=== PATIENT | male | born 1960 | race Caucasian/White ===

== ENCOUNTER 2018-06-23 05:05 | Emergency (ER) | payer SELFPAY ==
[~2018-06-23] VITALS: Ht 182.9 cm; Wt 79.4 kg
[2018-06-23] MEDS ORDERED: fentaNYL PF VIAL 100 MCG/2 ML VIAL IV PRN (05:15)
--- NOTE | 2018-06-23 05:25 | PHYS DOC ---
Adult General HPI HPI Patient is a 57-year-old male who presents with complaint of left-sided chest wall pain that started yesterday. Patient states that he has been doing a lot of coughing and yesterday states that he started having pain in his left ribs. He states that it feels like maybe he cracked one of his ribs. He denies any recent injuries. Patient states that he also wonders if he might have pneumonia. States that cough is been productive of sputum. He rates pain at an 8 -9 out of 10. He states the pain is worsened with coughing and with deep breathing. (SUNNY VALENCIA Jr. DO) Review of Systems Review of Systems Constitutional: Denies fever or chills [] Respiratory: Complains of cough and shortness of breath [] Cardiovascular: No additional information not addressed in HPI [] GI: Denies abdominal pain, nausea, vomiting or diarrhea [] Integument: Denies rash or skin lesions [] All other systems were reviewed and found to be within normal limits, except as documented in this note. (SUNNY VALENCIA Jr. DO) Current Medications Current Medications Current Medications Medications (Trade) Dose Ordered Sig/Irma Start Time Stop Time Status Last Admin Dose Admin Fentanyl Citrate (Fentanyl 2ml Vial) 25 mcg PRN Q15MIN PRN 06/23/18 05:15 06/24/18 05:14 06/23/18 05:45 25 MCG Info (CONTRAST GIVEN -- Rx MONITORING) 1 each PRN DAILY PRN 06/23/18 06:30 06/25/18 06:29 Iohexol (Omnipaque 350 Mg/ml) 100 ml 1X ONCE 06/23/18 07:00 06/23/18 07:01 DC Sodium Chloride 1,000 ml @ 100 mls/hr Q10H 06/23/18 06:00 06/23/18 15:59 06/23/18 05:45 100 MLS/HR (ISABELLA LUBIN DO) Allergies Allergies Allergies Coded Allergies Type Severity Reaction Last Updated Verified No Known Drug Allergies 06/23/18 No (ISABELLA LUBIN DO) Physical Exam Physical Exam Constitutional: Well developed, well nourished, no acute distress, non-toxic appearance. [] HENT: Normocephalic, atraumatic, bilateral external ears normal, oropharynx moist, no oral exudates, nose normal. [] Eyes: PERRLA, EOMI, conjunctiva normal, no discharge. [] Neck: Normal range of motion, no tenderness, supple, no stridor. [] Cardiovascular: Regular rate and rhythm [] Lungs & Thorax: There are rales in the left lung base to auscultation [] Abdomen: Bowel sounds normal, soft, no tenderness. [] Skin: Warm, dry, no erythema, no rash. [] Extremities: No tenderness, no cyanosis, no clubbing, ROM intact, no edema. [] Neurologic: Alert and oriented X 3, normal motor function, normal sensory function, no focal deficits noted. [] (SUNNY VALENCIA Jr. DO) Current Patient Data Vital Signs Vital Signs Date Time Temp Pulse Resp B/P (MAP) Pulse Ox O2 Delivery O2 Flow Rate FiO2 06/23/18 07:14 141/78 (99) 06/23/18 06:38 67 95 Room Air 06/23/18 05:05 98.1 21 98.1 (ISABELLA LUBIN DO) Lab Values Laboratory Tests Test 06/23/18 05:20 White Blood Count 8.9 x10^3/uL (4.0-11.0) Red Blood Count 4.42 x10^6/uL (4.30-5.70) Hemoglobin 13.7 g/dL (13.0-17.5) Hematocrit 40.7 % (39.0-53.0) Mean Corpuscular Volume 92 fL (79-100) Mean Corpuscular Hemoglobin 31 pg (25-35) Mean Corpuscular Hemoglobin Concent 34 g/dL (31-37) Red Cell Distribution Width 15.0 % (11.5-14.5) H Platelet Count 312 x10^3/uL (140-400) Neutrophils (%) (Auto) 60 % (31-73) Lymphocytes (%) (Auto) 28 % (24-48) Monocytes (%) (Auto) 10 % (0-9) H Eosinophils (%) (Auto) 1 % (0-3) Basophils (%) (Auto) 1 % (0-3) Neutrophils # (Auto) 5.4 x10^3uL (1.8-7.7) Lymphocytes # (Auto) 2.5 x10^3/uL (1.0-4.8) Monocytes # (Auto) 0.9 x10^3/uL (0.0-1.1) Eosinophils # (Auto) 0.1 x10^3/uL (0.0-0.7) Basophils # (Auto) 0.1 x10^3/uL (0.0-0.2) Sodium Level 134 mmol/L (136-145) L Potassium Level 3.7 mmol/L (3.5-5.1) Chloride Level 100 mmol/L (98-107) Carbon Dioxide Level 25 mmol/L (21-32) Anion Gap 9 (6-14) Blood Urea Nitrogen 14 mg/dL (8-26) Creatinine 0.8 mg/dL (0.7-1.3) Estimated GFR (Cockcroft-Gault) 99.3 BUN/Creatinine Ratio 18 (6-20) Glucose Level 109 mg/dL (70-99) H Lactic Acid Level 1.7 mmol/L (0.4-2.0) Calcium Level 8.2 mg/dL (8.5-10.1) L Magnesium Level 2.2 mg/dL (1.8-2.4) Total Bilirubin 0.2 mg/dL (0.2-1.0) Aspartate Amino Transferase (AST) 34 U/L (15-37) Alanine Aminotransferase (ALT) 45 U/L (16-63) Alkaline Phosphatase 106 U/L (46-116) Troponin I Quantitative < 0.017 ng/mL (0.000-0.055) AB-Hxr-D-Type Natriuretic Peptide 45 pg/mL (0-124) Total Protein 7.3 g/dL (6.4-8.2) Albumin 3.3 g/dL (3.4-5.0) L Albumin/Globulin Ratio 0.8 (1.0-1.7) L Laboratory Tests 06/23/18 05:20 Laboratory Tests 06/23/18 05:20 (ISABELLA LUBIN DO) EKG EKG [] Interpretation Time: EKG demonstrates normal sinus rhythm with rate of 65. (SUNNY VALENCIA Jr., DO) Radiology/Procedures Radiology/Procedures [] (SUNNY VALENCIA Jr., DO) Course & Med Decision Making Course & Med Decision Making Pertinent Labs and Imaging studies reviewed. (See chart for details) [] (VALENCIA,SUNNY D Jr. DO) Course & Med Decision Making Atypical chest pain, EKG abnormal. The patient strongly recommended for further cardiac evaluation declined by patient. He requests to leave the hospital follow -up with his primary care physician. I explained to patient that he is high risk and disability from time to metastatic diagnosis. He verbalized understanding of these risks and requested to leave the emergency department. I instructed to follow-up with his primary care doctor as soon as possible and to return to the ED should he change his mind regarding hospital admission, (ISABELLA LUBIN DO) Dragon Disclaimer Dragon Disclaimer This electronic medical record was generated, in whole or in part, using a voice recognition dictation system. (SUNNY VALENCIA Jr. DO) Departure Departure Impression: Primary Impression: Chest pain Disposition: 07 AGAINST MEDICAL ADVICE Condition: GUARDED SUNNY VALENCIA Jr., DO Jun 23, 2018 05:25 ISABELLA LUBIN DO Jun 23, 2018 08:38
[2018-06-23 05:47] LABS: BASO # 0.1 x10^3/uL (0.0-0.2); BASO % 1 % (0-3); EOS # 0.1 x10^3/uL (0.0-0.7); EOS % 1 % (0-3); HEMATOCRIT 40.7 % (39.0-53.0); HEMOGLOBIN 13.7 g/dL (13.0-17.5); LYMPH # 2.5 x10^3/uL (1.0-4.8); LYMPH % 28 % (24-48); MEAN CORPUSCULAR HEMOGLOBIN 31 pg (25-35); MEAN CORPUSCULAR HGB CONC 34 g/dL (31-37); MEAN CORPUSCULAR VOLUME 92 fL (79-100); MONO # 0.9 x10^3/uL (0.0-1.1); MONO % 10 % (0-9); NEUT # 5.4 x10^3uL (1.8-7.7); NEUT % 60 % (31-73); PLATELET COUNT 312 x10^3/uL (140-400); RED BLOOD COUNT 4.42 x10^6/uL (4.30-5.70); WHITE BLOOD COUNT 8.9 x10^3/uL (4.0-11.0)
[2018-06-23] MEDS ORDERED: IV NORMAL SALINE 1000ML BAG 1,000 ML IV SCH (06:00)
[2018-06-23 06:01] LABS: CALCIUM 8.2 mg/dL (8.5-10.1); CREATININE 0.8 mg/dL (0.7-1.3); GFR 99.3; POTASSIUM 3.7 mmol/L (3.5-5.1)
[2018-06-23 06:06] LABS: ALBUMIN 3.3 g/dL (3.4-5.0); ALBUMIN/GLOBULIN RATIO 0.8 (1.0-1.7); MAGNESIUM 2.2 mg/dL (1.8-2.4); TOTAL BILIRUBIN 0.2 mg/dL (0.2-1.0); TOTAL PROTEIN 7.3 g/dL (6.4-8.2)
--- NOTE | 2018-06-23 06:26 | EKG ---
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
[2018-06-23] MEDS ORDERED: CONTRAST GIVEN. MC PRN (06:30)
--- NOTE | 2018-06-23 06:58 | RAD ---
AP chest x-ray HISTORY: Chest wall pain. COMPARISON: None available at time of exam. FINDINGS: Heart size is normal. Mediastinal silhouette is normal. There is a heterogeneous density of the lateral lingula and left upper lobe is uncertain if this represents pneumonic infiltrate or region of fibrotic change given the somewhat linear densities suggesting fibrosis adjacent of chronic healed rib deformities. Right lung is clear. No pneumothorax. No pleural effusions. IMPRESSION: Heterogeneous linear densities of the lateral aspect of the lingula and left upper lobe could represent a chronic region of pulmonary fibrosis versus a developing lobar pneumonia. Consider follow-up x-rays after treatment to document that this resolves. If this persists on follow-up, and there are no prior studies to document stability, then consider further assessment with CT imaging. Electronically signed by: Mitesh Watkins MD (06/23/2018 6:54 AM) [facility]
[2018-06-23] MEDS ORDERED: IOHEXOL 350 MG/ML 100 ML VIAL. IV ONE (07:00)
[2018-06-23 07:14] VITALS: BP 141/78
--- NOTE | 2018-06-23 08:20 | RAD ---
CT ANGIOGRAPHY CHEST Indication: L CP INJ 100ML OMNI 350 NO PREV . Comparison: No comparison is available. Technique: After intravenous contrast administration, CT imaging was performed of the chest. MIP reconstructions were obtained. Exposure: One or more of the following individualized dose reduction techniques were utilized for this examination: 1. Automated exposure control 2. Adjustment of the mA and/or kV according to patient size 3. Use of iterative reconstruction technique. FINDINGS: Pulmonary arteries: No evidence of pulmonary embolism. Thoracic aorta: No evidence of aortic aneurysm. Thyroid gland: Visualized aspect is unremarkable. Lymph nodes: No significant enlargement Heart: No significant pericadial effusion. Esophagus: Unremarkable Pleural spaces: No significant effusion Lungs: There are emphysematous changes identified in both lungs Trachea and central airways: Patent Bones: Mild degenerative spurring of the thoracic spine. Upper abdomen: Slices through the upper abdomen are limited due to the technique. No obvious acute findings. External Soft Tissue: No acute findings. IMPRESSION: 1. No evidence of pulmonary embolism or acute abnormality. 2. Emphysematous changes in both lungs. Electronically signed by: Amor Gracia MD (06/23/2018 8:15 AM) [facility]
== END 2018-06-23 08:26 | disposition left against medical advice (07) ==
LOC: ER 05:05
DX: R07.89 Other chest pain (principal); R05 Cough; R06.02 Shortness of breath
CPT/HCPCS: 36415; 71045; 71275; 80053; 83605; 83735; 83880; 84484; 85025; 87040; 93005; 96374; 99284; J3010; J7030

== ENCOUNTER 2018-10-28 02:03 | Inpatient (IN) | payer SELFPAY ==
[~2018-10-28] VITALS: Ht 182.9 cm; Wt 76.9 kg
[2018-10-28 02:20] LABS: BASO # 0.2 x10^3/uL (0.0-0.2); BASO % 1 % (0-3); EOS # 0.1 x10^3/uL (0.0-0.7); EOS % 1 % (0-3); HEMOGLOBIN 13.6 g/dL (13.0-17.5); LYMPH % 24 % (24-48); MEAN CORPUSCULAR HEMOGLOBIN 28 pg (25-35); MEAN CORPUSCULAR HGB CONC 33 g/dL (31-37); MEAN CORPUSCULAR VOLUME 86 fL (79-100); MONO # 1.1 x10^3/uL (0.0-1.1); MONO % 9 % (0-9); NEUT # 8.1 x10^3uL (1.8-7.7); NEUT % 65 % (31-73); PLATELET COUNT 371 x10^3/uL (140-400); RED BLOOD COUNT 4.87 x10^6/uL (4.30-5.70); RED CELL DISTRIBUTION WIDTH 21.2 % (11.5-14.5); WHITE BLOOD COUNT 12.5 x10^3/uL (4.0-11.0)
[2018-10-28] MEDS ORDERED: NITROGLYCERIN SUBLINGUAL 0.4 MG BOTTLE OF 25. SL PRN (02:30)
[2018-10-28] MEDS ORDERED: ONDANSETRON PF 4 MG/2 ML VIAL. IV PRN (02:30)
[2018-10-28] MEDS ORDERED: ACETAMINOPHEN 325 MG TABLET. PO PRN (02:30)
[2018-10-28 02:34] LABS: CALCIUM 8.4 mg/dL (8.5-10.1); GFR 76.5; POTASSIUM 3.4 mmol/L (3.5-5.1)
--- NOTE | 2018-10-28 02:38 | PHYS DOC ---
Past Medical History Past Medical History: Cancer Additional Past Medical Histor: Colon CA Past Surgical History: Cancer Surgery Additional Information: 10 ciggerttes/ day Alcohol Use: Heavy Drug Use: None Adult General Chief Complaint Chief Complaint: DIZZY/LIGHT HEADED HPI HPI 58-year-old very unfortunate male presents secondary to chest pain. Patient has a history of stage III colon cancer with resection in June 2018. He continues to smoke. He does drink alcohol. Tonight when he was going to bed he developed whole body sweats and some midsternal chest discomfort that he described as tight. He denies any fever chills or sweats. He did have some associated nausea. He has not had any cough or congestion.[] Review of Systems Review of Systems Constitutional: Denies fever or chills [] Eyes: Denies change in visual acuity, redness, or eye pain [] HENT: Denies nasal congestion or sore throat [] Respiratory: Denies cough or shortness of breath [] Cardiovascular: Per history of present illness[] GI: Ostomy with healing surgical wounds[] : Denies dysuria or hematuria [] Musculoskeletal: Denies back pain or joint pain [] Integument: Denies rash or skin lesions [] Neurologic: Denies headache, focal weakness or sensory changes [] Endocrine: Denies polyuria or polydipsia [] All other systems were reviewed and found to be within normal limits, except as documented in this note. Current Medications Current Medications Allergies Allergies Allergies Coded Allergies Type Severity Reaction Last Updated Verified No Known Drug Allergies 06/23/18 No Physical Exam Physical Exam Constitutional: Well developed, well nourished, no acute distress, appears mildly intoxicated. [] HENT: Normocephalic, atraumatic, bilateral external ears normal, oropharynx moist, no oral exudates, nose normal. [] Eyes: PERRLA, EOMI, conjunctiva normal, no discharge. [] Neck: Normal range of motion, no tenderness, supple, no stridor. [] Cardiovascular:Heart rate regular rhythm, no murmur [] Lungs & Thorax: Bilateral breath sounds clear to auscultation [] Abdomen: Healing surgical wound with ostomy. [] Skin: Warm, dry, no erythema, no rash. [] Back: No tenderness, no CVA tenderness. [] Extremities: No tenderness, no cyanosis, no clubbing, ROM intact, no edema. [] Neurologic: Alert and oriented X 3, normal motor function, normal sensory function, no focal deficits noted. [] Psychologic: Depressed affect. [] Current Patient Data Vital Signs Vital Signs Date Time Temp Pulse Resp B/P (MAP) Pulse Ox O2 Delivery O2 Flow Rate FiO2 10/28/18 02:05 98.6 75 22 113/64 (80) 95 Room Air 98.6 Lab Values Laboratory Tests Test 10/28/18 02:00 White Blood Count 12.5 x10^3/uL (4.0-11.0) H Red Blood Count 4.87 x10^6/uL (4.30-5.70) Hemoglobin 13.6 g/dL (13.0-17.5) Hematocrit 42.0 % (39.0-53.0) Mean Corpuscular Volume 86 fL (79-100) Mean Corpuscular Hemoglobin 28 pg (25-35) Mean Corpuscular Hemoglobin Concent 33 g/dL (31-37) Red Cell Distribution Width 21.2 % (11.5-14.5) H Platelet Count 371 x10^3/uL (140-400) Neutrophils (%) (Auto) 65 % (31-73) Lymphocytes (%) (Auto) 24 % (24-48) Monocytes (%) (Auto) 9 % (0-9) Eosinophils (%) (Auto) 1 % (0-3) Basophils (%) (Auto) 1 % (0-3) Neutrophils # (Auto) 8.1 x10^3uL (1.8-7.7) H Lymphocytes # (Auto) 3.0 x10^3/uL (1.0-4.8) Monocytes # (Auto) 1.1 x10^3/uL (0.0-1.1) Eosinophils # (Auto) 0.1 x10^3/uL (0.0-0.7) Basophils # (Auto) 0.2 x10^3/uL (0.0-0.2) Platelet Estimate Pending Sodium Level 142 mmol/L (136-145) Potassium Level 3.4 mmol/L (3.5-5.1) L Chloride Level 104 mmol/L (98-107) Carbon Dioxide Level 24 mmol/L (21-32) Anion Gap 14 (6-14) Blood Urea Nitrogen 19 mg/dL (8-26) Creatinine 1.0 mg/dL (0.7-1.3) Estimated GFR (Cockcroft-Gault) 76.5 BUN/Creatinine Ratio 19 (6-20) Glucose Level 103 mg/dL (70-99) H Calcium Level 8.4 mg/dL (8.5-10.1) L Total Bilirubin 0.1 mg/dL (0.2-1.0) L Aspartate Amino Transferase (AST) 21 U/L (15-37) Alanine Aminotransferase (ALT) 26 U/L (16-63) Alkaline Phosphatase 107 U/L (46-116) Troponin I Quantitative < 0.017 ng/mL (0.000-0.055) Total Protein 7.8 g/dL (6.4-8.2) Albumin 3.5 g/dL (3.4-5.0) Albumin/Globulin Ratio 0.8 (1.0-1.7) L Laboratory Tests 10/28/18 02:00 Laboratory Tests 10/28/18 02:00 EKG EKG [] Interpretation Time: EKG: Normal sinus rhythm rate of [address]-T changes Radiology/Procedures Radiology/Procedures [] Course & Med Decision Making Course & Med Decision Making Pertinent Labs and Imaging studies reviewed. (See chart for details) [ED course: Evaluation reveals 58-year-old smoker who presents with chest pain and diaphoresis. His EKG chest x-ray and laboratory studies were unremarkable. We'll place patient in the hospital for further risk stratification. Patient's Heart Score is 4 moderate risk.] Dragon Disclaimer Dragon Disclaimer This electronic medical record was generated, in whole or in part, using a voice recognition dictation system. Departure Departure Impression: Primary Impression: Chest pain Disposition: 09 ADMITTED INPATIENT Admitting Physician: HIMS Condition: STABLE Referrals: UNKNOWN PCP NAME (PCP) Problem Qualifiers Primary Impression: Chest pain Chest pain type: unspecified Qualified Codes: R07.9 - Chest pain, unspecified KHUSHI YANG DO Oct 28, 2018 02:38
[2018-10-28 02:39] LABS: ALBUMIN 3.5 g/dL (3.4-5.0); ALBUMIN/GLOBULIN RATIO 0.8 (1.0-1.7); TOTAL BILIRUBIN 0.1 mg/dL (0.2-1.0); TOTAL PROTEIN 7.8 g/dL (6.4-8.2)
[2018-10-28] MEDS ORDERED: FAMOTIDINE 20 MG/2 ML VIAL IVP ONE (03:00)
[2018-10-28 03:15] VITALS: BP 141/82
[2018-10-28 04:38] LABS: ANISOCYTOSIS MOD; PLT ESTIMATE ADEQUATE (ADEQUATE)
[2018-10-28 07:00] VITALS: BP 103/57
[2018-10-28] MEDS ORDERED: POTASSIUM CHLORIDE 20 MEQ TABLET.ER. PO ONE (08:15)
--- NOTE | 2018-10-28 08:38 | RAD ---
EXAM: CHEST 1 VIEW. HISTORY: Chest pain. COMPARISON: 06/23/2018. FINDINGS: A frontal view of the chest is obtained. Scarlike opacity laterally in the left midlung has a correlate on prior studies. Hyperinflation is consistent with chronic obstructive pulmonary disease. There is no pneumothorax or pleural effusion. The heart is not enlarged. There are chronic left rib fractures. IMPRESSION: 1. Scarlike opacity in the left midlung, not clearly changed. Chronic obstructive pulmonary disease. Electronically signed by: Carey Pascal MD (10/28/2018 8:35 AM) [facility]
--- NOTE | 2018-10-28 09:02 | PDOC1 ---
History and Physical Date of Admission Date of Admission DATE: 10/28/18 TIME: 09:02 Source Source: Chart review, Patient History of Present Illness History of Present Illness MR. Rowan se 58-year-old male, present with Chest pain last night to the ER, mid sternal chest pain, 7/10, with pressure. He has hx of colon cancer, stage 3 s/p resection, conttinues to use tobacco. some EtOH . He did have some associated nausea. He has not had any cough or congestion.[] Social History Smoke: <1 pack per day ALCOHOL: social Drugs: None Current Medications Current Medications Current Medications Ondansetron HCl (Zofran) 4 mg PRN Q8HRS PRN IV NAUSEA/VOMITING 1ST CHOICE; Start 10/28/18 at 02:30; Stop 10/29/18 at 02:29 Acetaminophen (Tylenol) 650 mg PRN Q4HRS PRN PO FEVER; Start 10/28/18 at 02:30; Stop 10/29/18 at 02:29 Nitroglycerin (Nitrostat) 0.4 mg PRN Q5MIN PRN SL CHEST PAIN; Start 10/28/18 at 02:30; Stop 10/29/18 at 02:29 Famotidine (Pepcid Vial) 20 mg 1X ONCE IVP Last administered on 10/28/18at 03:06; Start 10/28/18 at 03:00; Stop 10/28/18 at 03:01; Status DC Potassium Chloride (Klor-Con) 20 meq 1X ONCE PO ; Start 10/28/18 at 08:15; Stop 10/28/18 at 08:16; Status DC Allergies Allergies: Coded Allergies: No Known Drug Allergies (Unverified , 06/23/18) ROS General: YES: Chills, Fatigue, Malaise; No: Night Sweats, Appetite, Other PSYCHOLOGICAL ROS: No: Anxiety, Behavioral Disorder, Concentration difficultie, Decreased libido, Depression, Disorientation, Hallucinations, Hostility, Irritablity, Memory difficulties, Mood Swings, Obsessive thoughts, Physical abuse, Sexual abuse, Sleep disturbances, Suicidal ideation, Other Respiratory: YES: Shortness of breath, SOB with excertion; No: Cough, Hemoptysis, Orthopnea, Pleuritic Pain, Sputum Changes, Stridor, Tachypnea, Wheezing, Other Cardiovascular: yes Chest Pain Genitourinary: No Dysuria, No Frequency, No Incontinence, No Hematuria, No Retention, No Discharge, No Urgency, No Pain, No Flank Pain, No Other, No , No , No , No , No , No , No Musculoskeletal: No Gait Disturbance, No Joint Pain, No Joint Stiffness, No Joint Swelling, No Muscle Pain, No Muscular Weakness, No Pain In:, No Swelling In:, No Other Neurological: No Behavorial Changes, No Bowel/Bladder ControlChng, No Conf usion, No Dizziness, No Gait Disturbance, No Headaches, No Impaired Coord/balance, No Memory Loss, No Numbness/Tingling, No Seizures, No Speech Problems, No Tremors, No Visual Changes, No Weakness, No Other Skin: No Dry Skin, No Eczema, No Hair Changes, No Lumps, No Mole Changes, No Mottling, No Nail Changes, No Pruritus, No Rash, No Skin Lesion Changes, No Ot her, No Acne Physical Exam General: Alert, Oriented X3, Cooperative, mild distress HEENT: PERRLA Lungs: Clear to auscultation Heart: RRR Abdomen: Normal bowel sounds, Soft Extremities: No cyanosis, No edema, Normal pulses Skin: No rashes, No significant lesion Neuro: Normal gait, Normal tone, Cranial nerves 3-12 NL Psych/Mental Status: Mood NL Vitals Vitals Vital Signs Date Time Temp Pulse Resp B/P (MAP) Pulse Ox O2 Delivery O2 Flow Rate FiO2 10/28/18 07:00 97.5 63 18 103/57 (72) 93 Room Air 97.5 Labs Labs Laboratory Tests Test 10/28/18 02:00 10/28/18 06:35 White Blood Count 12.5 x10^3/uL (4.0-11.0) Red Blood Count 4.87 x10^6/uL (4.30-5.70) Hemoglobin 13.6 g/dL (13.0-17.5) Hematocrit 42.0 % (39.0-53.0) Mean Corpuscular Volume 86 fL (79-100) Mean Corpuscular Hemoglobin 28 pg (25-35) Mean Corpuscular Hemoglobin Concent 33 g/dL (31-37) Red Cell Distribution Width 21.2 % (11.5-14.5) Platelet Count 371 x10^3/uL (140-400) Neutrophils (%) (Auto) 65 % (31-73) Lymphocytes (%) (Auto) 24 % (24-48) Monocytes (%) (Auto) 9 % (0-9) Eosinophils (%) (Auto) 1 % (0-3) Basophils (%) (Auto) 1 % (0-3) Neutrophils # (Auto) 8.1 x10^3uL (1.8-7.7) Lymphocytes # (Auto) 3.0 x10^3/uL (1.0-4.8) Monocytes # (Auto) 1.1 x10^3/uL (0.0-1.1) Eosinophils # (Auto) 0.1 x10^3/uL (0.0-0.7) Basophils # (Auto) 0.2 x10^3/uL (0.0-0.2) Platelet Estimate Adequate (ADEQUATE) Anisocytosis Mod Sodium Level 142 mmol/L (136-145) Potassium Level 3.4 mmol/L (3.5-5.1) Chloride Level 104 mmol/L (98-107) Carbon Dioxide Level 24 mmol/L (21-32) Anion Gap 14 (6-14) Blood Urea Nitrogen 19 mg/dL (8-26) Creatinine 1.0 mg/dL (0.7-1.3) Estimated GFR (Cockcroft-Gault) 76.5 BUN/Creatinine Ratio 19 (6-20) Glucose Level 103 mg/dL (70-99) Calcium Level 8.4 mg/dL (8.5-10.1) Total Bilirubin 0.1 mg/dL (0.2-1.0) Aspartate Amino Transf (AST/SGOT) 21 U/L (15-37) Alanine Aminotransferase (ALT/SGPT) 26 U/L (16-63) Alkaline Phosphatase 107 U/L (46-116) Troponin I Quantitative < 0.017 ng/mL (0.000-0.055) < 0.017 ng/mL (0.000-0.055) Total Protein 7.8 g/dL (6.4-8.2) Albumin 3.5 g/dL (3.4-5.0) Albumin/Globulin Ratio 0.8 (1.0-1.7) Laboratory Tests Test 10/28/18 02:00 10/28/18 06:35 White Blood Count 12.5 x10^3/uL (4.0-11.0) Red Blood Count 4.87 x10^6/uL (4.30-5.70) Hemoglobin 13.6 g/dL (13.0-17.5) Hematocrit 42.0 % (39.0-53.0) Mean Corpuscular Volume 86 fL (79-100) Mean Corpuscular Hemoglobin 28 pg (25-35) Mean Corpuscular Hemoglobin Concent 33 g/dL (31-37) Red Cell Distribution Width 21.2 % (11.5-14.5) Platelet Count 371 x10^3/uL (140-400) Neutrophils (%) (Auto) 65 % (31-73) Lymphocytes (%) (Auto) 24 % (24-48) Monocytes (%) (Auto) 9 % (0-9) Eosinophils (%) (Auto) 1 % (0-3) Basophils (%) (Auto) 1 % (0-3) Neutrophils # (Auto) 8.1 x10^3uL (1.8-7.7) Lymphocytes # (Auto) 3.0 x10^3/uL (1.0-4.8) Monocytes # (Auto) 1.1 x10^3/uL (0.0-1.1) Eosinophils # (Auto) 0.1 x10^3/uL (0.0-0.7) Basophils # (Auto) 0.2 x10^3/uL (0.0-0.2) Platelet Estimate Adequate (ADEQUATE) Anisocytosis Mod Sodium Level 142 mmol/L (136-145) Potassium Level 3.4 mmol/L (3.5-5.1) Chloride Level 104 mmol/L (98-107) Carbon Dioxide Level 24 mmol/L (21-32) Anion Gap 14 (6-14) Blood Urea Nitrogen 19 mg/dL (8-26) Creatinine 1.0 mg/dL (0.7-1.3) Estimated GFR (Cockcroft-Gault) 76.5 BUN/Creatinine Ratio 19 (6-20) Glucose Level 103 mg/dL (70-99) Calcium Level 8.4 mg/dL (8.5-10.1) Total Bilirubin 0.1 mg/dL (0.2-1.0) Aspartate Amino Transf (AST/SGOT) 21 U/L (15-37) Alanine Aminotransferase (ALT/SGPT) 26 U/L (16-63) Alkaline Phosphatase 107 U/L (46-116) Troponin I Quantitative < 0.017 ng/mL (0.000-0.055) < 0.017 ng/mL (0.000-0.055) Total Protein 7.8 g/dL (6.4-8.2) Albumin 3.5 g/dL (3.4-5.0) Albumin/Globulin Ratio 0.8 (1.0-1.7) VTE Prophylaxis Ordered VTE Prophylaxis Devices: No VTE Pharmacological Prophylaxi: Yes Assessment/Plan Assessment/Plan chest pain, angina, r/o ACS hypokalemia hx of colon cancer tobacco use disorder AVI WAITE MD Oct 28, 2018 09:02
[2018-10-28 09:03] LABS: MAGNESIUM 2.1 mg/dL (1.8-2.4)
[2018-10-28 09:05] LABS: CHOLESTEROL/HDL RATIO 4.8
[2018-10-28] MEDS ORDERED: NICOTINE 14MG PATCH. TD PRN (09:15)
[2018-10-28] MEDS ORDERED: NICOTINE POLACRILEX 2MG GUM PACKAGE of 12. BC PRN (09:15)
--- NOTE | 2018-10-28 09:29 | PDOC2 ---
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 He woke up yesterday diaphoretic and was having mid chest pressure which lasted about 20 minutes. No recurrence since then. No associated SOA, radiating discomfort, dizziness or palpitations. No prior episodes and did not medicate self for the discomfort. He walks about 4 miles twice a week with last event last without any difficulty. Reports no recent falls or injury. No prior hx of CAD, VTE, or arrhythmias. He just had a colon resection with ostomy in 06/2018 due to stage 3 colon CA and is awaiting for incision debridement next Wednesday and due for chemotherapy soon. He has been stressed out lately with all these new changes in his life plus he lives alone and decided to drink a pint of vodka last night but denies any previous binge drinking. No heartburn and no bleeding issues. PAST MEDICAL HISTORY Cardiovascular: No pertinent hx Pulmonary: No pertinent hx CENTRAL NERVOUS SYSTEM: Other (No pertinent history) GI: Other (colon CA) Heme/Onc: Cancer (colon) Psych: Anxiety Musculoskeletal: Osteoarthritis Rheumatologic: No pertinent hx Infectious disease: No pertinent hx ENT: No pertinent hx Renal/: No pertinent hx Endocrine: No pertinent hx Dermatology: No pertinent hx PAST SURGICAL HISTORY Past Surgical History: Arthroscopy (left hand), Colon Resection (with colostomy) FAMILY HISTORY Family History noncontributory to CV SOCIAL HISTORY Smoke: <1 pack per day (>40 yrs) ALCOHOL: occassional Drugs: None Lives: Alone CURRENT MEDICATIONS CURRENT MEDICATIONS Current Medications Medications (Trade) Dose Ordered Sig/Irma Route PRN Reason Start Time Stop Time Status Last Admin Dose Admin Famotidine (Pepcid Vial) 20 mg 1X ONCE IVP 10/28/18 03:00 10/28/18 03:01 DC 10/28/18 03:06 ALLERGIES ALLERGIES: Coded Allergies: No Known Drug Allergies (Unverified , 06/23/18) ROS Review of System 14 point ROS evaluated with pertinent positives noted per HPI PHYSICAL EXAM General: Alert, Oriented X3, Cooperative, No acute distress HEENT: Atraumatic, Mucous membr. moist/pink Lungs: Clear to auscultation, Normal air movement, Other (faint basilar crackl es) Heart: Regular rate (SR/SB lowest 50s no ectopies) Abdomen: Soft, Other (mid abdominal healed incision with small hypogastric opening due for debridement next Wednesday, Colostomy in place) Extremities: No cyanosis, No edema Skin: No breakdown, No significant lesion Neuro: Normal speech, Sensation intact Psych/Mental Status: Mental status NL, Other (anxious) MUSCULOSKELETAL: Osteoarthritic changes both hands VITALS VITALS Vital Signs Date Time Temp Pulse Resp B/P (MAP) Pulse Ox O2 Delivery O2 Flow Rate FiO2 10/28/18 07:00 97.5 63 18 103/57 (72) 93 Room Air 97.5 LABS Lab: Laboratory Tests Test 10/28/18 02:00 10/28/18 06:35 White Blood Count 12.5 x10^3/uL (4.0-11.0) Red Blood Count 4.87 x10^6/uL (4.30-5.70) Hemoglobin 13.6 g/dL (13.0-17.5) Hematocrit 42.0 % (39.0-53.0) Mean Corpuscular Volume 86 fL (79-100) Mean Corpuscular Hemoglobin 28 pg (25-35) Mean Corpuscular Hemoglobin Concent 33 g/dL (31-37) Red Cell Distribution Width 21.2 % (11.5-14.5) Platelet Count 371 x10^3/uL (140-400) Neutrophils (%) (Auto) 65 % (31-73) Lymphocytes (%) (Auto) 24 % (24-48) Monocytes (%) (Auto) 9 % (0-9) Eosinophils (%) (Auto) 1 % (0-3) Basophils (%) (Auto) 1 % (0-3) Neutrophils # (Auto) 8.1 x10^3uL (1.8-7.7) Lymphocytes # (Auto) 3.0 x10^3/uL (1.0-4.8) Monocytes # (Auto) 1.1 x10^3/uL (0.0-1.1) Eosinophils # (Auto) 0.1 x10^3/uL (0.0-0.7) Basophils # (Auto) 0.2 x10^3/uL (0.0-0.2) Platelet Estimate Adequate (ADEQUATE) Anisocytosis Mod Sodium Level 142 mmol/L (136-145) Potassium Level 3.4 mmol/L (3.5-5.1) Chloride Level 104 mmol/L (98-107) Carbon Dioxide Level 24 mmol/L (21-32) Anion Gap 14 (6-14) Blood Urea Nitrogen 19 mg/dL (8-26) Creatinine 1.0 mg/dL (0.7-1.3) Estimated GFR (Cockcroft-Gault) 76.5 BUN/Creatinine Ratio 19 (6-20) Glucose Level 103 mg/dL (70-99) Calcium Level 8.4 mg/dL (8.5-10.1) Total Bilirubin 0.1 mg/dL (0.2-1.0) Aspartate Amino Transf (AST/SGOT) 21 U/L (15-37) Alanine Aminotransferase (ALT/SGPT) 26 U/L (16-63) Alkaline Phosphatase 107 U/L (46-116) Troponin I Quantitative < 0.017 ng/mL (0.000-0.055) < 0.017 ng/mL (0.000-0.055) Total Protein 7.8 g/dL (6.4-8.2) Albumin 3.5 g/dL (3.4-5.0) Albumin/Globulin Ratio 0.8 (1.0-1.7) Magnesium Level 2.1 mg/dL (1.8-2.4) Triglycerides Level 91 mg/dL (0-150) Cholesterol Level 186 mg/dL (0-200) LDL Cholesterol, Calculated 129 mg/dL (0-100) VLDL Cholesterol, Calculated 18 mg/dL (0-40) Non-HDL Cholesterol Calculated 147 mg/dL (0-129) HDL Cholesterol 39 mg/dL (40-60) Cholesterol/HDL Ratio 4.8 ASSESSMENT/PLAN ASSESSMENT/PLAN 1. Chest pain: trops nml. EKG unable to retrieve but read as NSR in ED. 2. Mild HLP 3. Stage 3 colon CA: S/P colon resection with colostomy 06/2018 4. Tobaccoism Recommendations 1. MPI has been initiated per PCP 2. Check TTE 3. Lipids. Replace K 4. Smoking cessation CLOTILDE FRANKLIN MD 10/28/18 1418: CARDIAC CONSULT ASSESSMENT/PLAN ASSESSMENT/PLAN Patient seen and examined. 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 Chest pain with atypical features Myocardial infarction has been ruled out 2-D echo showed normal LV function without any wall motion abnormalities Treadmill nuclear stress test did not show any significant ischemia No further cardiac workup is indicated at this time Thank you for your consultation SOPHIA HERRMANN APRN Oct 28, 2018 09:29 CLOTILDE FRANKLIN MD Oct 28, 2018 14:18
--- NOTE | 2018-10-28 10:05 | EKG ---
[facility] [address] [place] [address] Test Date: 2018-10-28 Test Time: 09:38:00 Pat Name: MANOJ ANTONIO Department: Room: Gender: Assistant Clinical Director: : 1960 Requested By: KHUSHI YANG Order Number: [id number] Reading MD: Measurements Intervals [place] Rate: 74 P: 72 CT: 138 QRS: 72 QRSD: 78 T: 69 QT: 388 QTc: 431 Interpretive Statements SINUS RHYTHM NO SPECIFIC ECG ABNORMALITIES RI6.01 Unconfirmed report No previous ECG available for comparison
[2018-10-28 11:00] VITALS: BP 132/83
--- NOTE | 2018-10-28 11:29 | NUR ---
SS following for discharge planning. SS reviewed pt chart. Pt is from home and is currently on room air. No discharge needs noted at this time. SS will continue to follow for discharge planning.
--- NOTE | 2018-10-28 11:31 | CARD ---
MR#: [id number] Date of Study: 10/28/2018 Ordering Physician: SOPHIA HERRMANN, Referring Physician: AVI WAITE Tech: Jennifer Jarquin JANNY APPROVED REPORT EXAM: Two-dimensional and M-mode echocardiogram with Doppler and color Doppler. Other Information Quality : AverageHR: 90bpm Rhythm : NSR INDICATION Chest Pain 2D DIMENSIONS RVDd2.8 (2.9-3.5cm)Left Atrium(2D)3.1 (1.6-4.0cm) IVSd1.2 (0.7-1.1cm)Aortic Root(2D)3.0 (2.0-3.7cm) LVDd4.9 (3.9-5.9cm)LVOT Diameter2.1 (1.8-2.4cm) PWd0.8 (0.7-1.1cm)LVDs3.2 (2.5-4.0cm) FS (%) 34.4 %SV70.5 ml LVEF(%)63.3 (>50%) M-Mode DIMENSIONS Left Atrium(MM)3.35 (2.5-4.0cm)Aortic Root3.29 (2.2-3.7cm) Aortic Valve AoV Peak Meño.110.0cm/sAoV VTI15.5cm AO Peak GR.4.8mmHgLVOT Peak Meño.96.2cm/s AO Mean GR.2mmHgAVA (VMAX)3.07cm2 ANTONY (VTI)3.00cm2 Mitral Valve MV E Ihbscsve26.2cm/sMV DECEL [id number] MV A Cqdxfubf02.5cm/sE/A Ratio1.0 Pulmonary Valve PV Peak Amgmkzif810.3cm/s LEFT VENTRICLE The left ventricle is normal size. Proximal septal thickening is noted. The left ventricular systolic function is normal. The Ejection Fraction is 60-65%. There is normal LV segmental wall motion. RIGHT VENTRICLE The right ventricle is normal size. There is normal right ventricular wall thickness. The right ventr icular systolic function is normal. ATRIA The left atrium size is normal. The right atrium size is normal. The interatrial septum is intact wit h no evidence for an atrial septal defect or patent foramen ovale as noted on 2-D or Doppler imaging. AORTIC VALVE The aortic valve is normal in structure and function. The aortic valve is trileaflet. Doppler and Col or Flow revealed no significant aortic regurgitation. There is no significant aortic valvular stenosi s. There is no aortic valvular vegetation. MITRAL VALVE The mitral valve is normal in structure and function. There is no evidence of mitral valve prolapse. There is no mitral valve stenosis. Doppler and Color Flow revealed no mitral valve regurgitation note d. TRICUSPID VALVE The tricuspid valve is normal in structure and function. Doppler and Color Flow revealed no tricuspid valve regurgitation noted. There is no tricuspid valve prolapse or vegetation. There is no tricuspid valve stenosis. PULMONIC VALVE The pulmonic valve is not well visualized. GREAT VESSELS The aortic root is normal in size. The ascending aorta is normal in size. The IVC is normal in size a nd collapses >50% with inspiration. PERICARDIAL EFFUSION There is no evidence of significant pericardial effusion. Critical Notification Critical Value: No <Conclusion> The left ventricular systolic function is normal. The Ejection Fraction is 60-65%. There is normal LV segmental wall motion. No significant valvular abnormalities. There is no evidence of significant pericardial effusion. Signed by : Feng Castillo, Electronically Approved : 10/28/2018 11:30:29
--- NOTE | 2018-10-28 12:37 | RAD ---
MR#: [id number] Date of Study: 10/28/2018 Ordering Physician: KHUSHI YANG, Referring Physician: INOCENCIO KAN Tech: JOSE E Valles APPROVED REPORT Test Type: Exercise Stress Nurse/Tech: Fermín CORTEZ Test Indications: Chest Pain, Diaphoresis Cardiac History: See EMR Medications: See EMR Medical History: Colon CA, Smoker x40yrs, See EMR Resting ECG: SR Resting Heart Rate: 82 bpm Resting Blood Pressure: 122/70mmHg Pretest Chest Pain: No chest pain Nurse/Tech Notes Lungs CTA, Heart tones regular. Consent: The procedure was explained to the patient in lay terms. Informed consent was witnessed. Dayday eout was entered into [employer]. History and Stress Test performed by BRITNEY Vee, IVON (R) (N) Pharm. Details Pharmacologic stress testing was performed using 0.4mg per 5ml of regadenoson given intravenously ove r 7-10 seconds. Stress Symptoms No chest pain or symptoms. POST EXERCISE Reason for Termination: Reached target heart rate Target HR: Yes Max HR: 142 bpm 104% of Maximum Predicted HR: 136 bpm Exercise duration: 9:30 min:sec, 3 Stage Exercise capacity: 10.0METs Max Blood Pressure: 156/82mmHg Blood Pressure response to exercise: Normal blood pressure response during stress. Heart Rate response to exercise: WNL Chest Pain: No. Arrhythmia: No. ST Change: No. INTERPRETATION Stress EKG Conclusion: Baseline EKG showed sinus rhythm. No ischemic changes at peak stress. No arr hythmias. Imaging Protocol IMAGE PROTOCOL: Rest Tc-99m/stress Tc-99m 1 day Rest: Stress: Viability: Radiopharm.Tc99m CymoglhrgOu46v Sestamibi Dose11.2mCi 33mCi Duration 15min. 13min. Img Date 10/28/2018 10/28/2018 Inj-Img [id number]. 75min. Rest Admin Site:IV - Left AntecubitalAdministrator:JOSE E Valles Stress Admin Site: IV - Left AntecubitalAdministrator: Darling Lewis, NMTCB, ARRT (R)(N) STRESS DATA End Diast. Vol.91.0mlLVEDV index BSA46.0ml End Syst. Vol.27.0mlLVESV index BSA14.0ml Myocardial Uwsg713.0gEject. Jvhlwexw85.0% Stress Scores Regional WT1.00Summed WT2.00 Regional WM0.00Summed WM0.00 Study quality was good. Left Ventricular size was Normal at Rest and Stress. Lung uptake was . Left Ventricular ejection fraction is 70%. The rest and stress images show normal perfusion, normal contraction and thickening. LV Perf. Quant 17 Seg. SSS0.00 17 Seg. SRS1.00 17 Seg. SDS0.00 Stress Defect Extent (% LAD)0.00Rest Defect Extent (% LAD)0.00Rev. Defect Extent (% LAD)0.00 Stress Defect Extent (% LCX) 0.00Rest Defect Extent (% LCX)0.00Rev. Defect Extent (% LCX)0.00 Stress Defect Extent (% RCA)0.00Rest Defect Extent (% RCA)7.80Rev. Defect Extent (% RCA)0.00 Stress Defect Extent (% ROHAN)0.00Rest Defect Extent (% ROHAN)2.00Rev. Defect Extent (% ROHAN)0.00 Conclusion 1. Treadmill exercise cardioisotope stress test did not show any evidence of ischemia or infarct. 2. Normal left ventricular systolic function with ejection fraction calculated at 70%. 3. Low risk for cardiac events. Signed by : Feng Castillo, Electronically Approved : 10/28/2018 12:36:14
--- NOTE | 2018-10-28 14:09 | NUR ---
Wound Care: Wound care consult for mid abdomen dehisced surgical incision, pt states he underwent colon resection surgery with ostomy placement in Jun 2018 and midline incision didn't close completely. Wound picture and measured, see wound intervention. Wound was cleaned with wound wash, 1"packing soaked in iodine was inserted into wound, abd and tape to cover. Ostomy teaching done by DIEGO Weathers and ostomy appliance changed. No other wounds noted upon assessment. Pt is following up with surgeon at . Wound care will continue to follow while inpatient.
[2018-10-28 15:00] VITALS: BP 150/73
== END 2018-10-28 18:00 | disposition home or self-care (01) | DRG 641 ==
LOC: ER 02:03 → 2 SOUTH 02:26
PROVIDERS: ADMIT Internal Medicine; ATTEND Internal Medicine
DX: E87.6 Hypokalemia (principal); C18.9 Malignant neoplasm of colon, unspecified; R07.89 Other chest pain; E78.5 Hyperlipidemia, unspecified; F17.210 Nicotine dependence, cigarettes, uncomplicated; M19.90 Unspecified osteoarthritis, unspecified site; Z60.2 Problems related to living alone; F41.9 Anxiety disorder, unspecified; Z85.038 Personal history of other malignant neoplasm of large intestine; Z90.49 Acquired absence of other specified parts of digestive tract; Z93.3 Colostomy status; Z79.899 Other long term (current) drug therapy; Z92.21 Personal history of antineoplastic chemotherapy; Z71.6 Tobacco abuse counseling
CPT/HCPCS: 36415; 71045; 78452; 80053; 80061; 83735; 84484; 85025; 93005; 93017; 93306; 96376; A9500; J3490; 99285-25